=== PATIENT | male | born 1995 | race African-American/Black ===

== ENCOUNTER 2017-03-13 22:43 | Emergency (ER) | payer OTHER ==
[2017-03-14 00:29] VITALS: BP 141/76; PULSE 73; TEMP 98; BMI 35.6
[2017-03-14 02:12] LABS: BASOPHIL 0.5 % (0-2.0); EOSINOPHIL 2.4 % (0-4.5); MCH 21.2 pg (25.7-33.7); MCHC 31.7 g/dl (32.0-35.9); MEAN CELL VOLUME 66.7 fl (80-96); MEAN PLT VOLUME 8.9 fl (7.5-11.1); NEUTROPHILS 66.9 % (42.8-82.8); PLATELET COUNT 280 K/MM3 (134-434); RDW 22.6 % (11.9-15.9); WHITE BLOOD COUNT 11.6 K/mm3 (4.0-10.0)
--- NOTE | 2017-03-14 02:23 | PDOC ---
History of Present Illness - General Chief Complaint: Cold Symptoms Stated Complaint: FEVER/COLD Time Seen by Provider: 03/14/17 00:55 History Source: Patient Exam Limitations: No Limitations - History of Present Illness Initial Comments: 03/14/17 02:18 21yo Male patient with no significant past medical history presents to ED c/o body chills, sweating, throat pain, difficulty swallowing, and congestion. He states symptoms began yesterday and got worse. He states having 2 young children at home recently diagnosed with upper respiratory infections. He denies any other complaints at this time. Timing/Duration: reports: yesterday Severity: reports: moderate Episode Description: See HPI Possible Cause: Yes: illness exposure Modifying Factors: improves with: coughing. worse with: activity, albuterol inhaler, albuterol nebulizer, antibiotics, lying down, oxygen, rest, other Associated Symptoms: reports: cough, fever/chills, nasal congestion, sore throat Past History - Travel Traveled outside of the country in the last 30 days: No Close contact w/someone who was outside of country & ill: No - Past Medical History Allergies/Adverse Reactions: Allergies Allergy/AdvReac Type Severity Reaction Status Date / Time No Known Allergies Allergy Verified 03/14/17 00:29 Home Medications: Ambulatory Orders Amoxicillin/Potassium Clav [Augmentin 875-125 Tablet] 1 each PO Q12H #28 tablet 03/14/17 Dexamethasone [Decadron -] 4 mg PO BID #14 tablet 03/14/17 Other medical history: Pt denies - Suicide/Smoking/Psychosocial Hx Smoking History: Current some day smoker Have you smoked in the past 12 months: No Information on smoking cessation initiated: No Hx Alcohol Use: No Drug/Substance Use Hx: No Substance Use Type: None Respiratory Specific PMHX - Complaint Specific PMHX Angina: No Bronchitis: No Pneumonia: No Pulmonary Embolus: No TB (Tuberculosis): No Review of Systems - Review of Systems Able to Perform ROS?: Yes Is the patient limited Sinhala proficient: No Constitutional: Yes: Chills, Diaphoresis, Fever HEENTM: Yes: Throat Pain, Difficulty Swallowing Respiratory: Yes: Cough. No: Shortness of Breath, Productive cough Cardiac (ROS): No: Chest Pain, Chest Tightness ABD/GI: No: Constipated, Diarrhea, Nausea, Vomiting Musculoskeletal: No: Back Pain Integumentary: Yes: Sweating. No: Erythema, Rash Neurological: No: Headache, Tingling, Dizziness All Other Systems: Reviewed and Negative *Physical Exam - Vital Signs Last Vital Signs Temp Pulse Resp BP Pulse Ox 98.0 F 73 14 141/76 100 03/14/17 00:27 03/14/17 00:27 03/14/17 00:27 03/14/17 00:27 03/14/17 00:27 - Physical Exam General Appearance: Yes: Nourished, Appropriately Dressed. No: Apparent Distress, Mild Distress, Moderate Distress, Severe Distress HEENT: positive: EOMI, NICOLLE, Normal ENT Inspection, Normal Voice, Symmetrical, TMs Normal, Pharyngeal Erythema, Tonsillar Exudate, Tonsillar Erythema, Nasal Congestion. negative: Rhinorrhea, Sinus Tenderness, TM Bulging, TM Dull, TM Erythema, Excessive drooling, Thrush Neck: positive: Trachea midline, Normal Thyroid, Supple, Lymphadenopathy (L). negative: Tender, Rigid, Stridor, Lymphadenopathy (R), Rigidity, Tender lateral , Tender midline Respiratory/Chest: positive: Lungs Clear, Normal Breath Sounds. negative: Chest Tender, Respiratory Distress, Accessory Muscle Use, Labored Respiration, Rapid RR, Paradoxal Breathing, Rhonchi, Stridor, Wheezing Cardiovascular: positive: Regular Rhythm, Regular Rate Musculoskeletal: positive: Normal Inspection. negative: CVA Tenderness Extremity: positive: Normal Capillary Refill, Normal Inspection, Normal Range of Motion. negative: Pedal Edema, Swelling, Calf Tenderness, Erythema, Inflammation Integumentary: positive: Normal Color, Dry, Warm Neurologic: positive: lifestyle consultant II-XII NML intact, Fully Oriented, Alert, Normal Mood/ Affect, Normal Response, Motor Strength 10/08 ED Treatment Course - LABORATORY CBC & Chemistry Diagram: 03/14/17 02:02 03/14/17 02:02 - ADDITIONAL ORDERS Additional order review: 03/14/17 02:02 Influenza Types A,B Antigen (REY) - Preliminary Nasopharyngeal Swab - Preliminary 03/14/17 02:02 RBC 6.03 H MCV 66.7 L MCHC 31.7 L RDW 22.6 H MPV 8.9 D Neutrophils % 66.9 Lymphocytes % 22.0 D Monocytes % 8.2 Eosinophils % 2.4 D Basophils % 0.5 - RADIOLOGY Radiology Studies Ordered: Category Date Time Status SOFT TISSUE NECK CT WITH CONTR [CT] Stat CT Scan 03/14/17 01:44 Ordered *DC/Admit/Observation/Transfer Diagnosis at time of Disposition: Tonsillitis Pharyngitis Qualifiers: Pharyngitis/tonsillitis etiology: other specified organisms Qualified Code(s): J02.8 - Acute pharyngitis due to other specified organisms; J02.8 - Acute pharyngitis due to other specified organisms - Discharge Dispostion Disposition: HOME Condition at time of disposition: Stable Admit: No - Prescriptions Prescriptions: Amoxicillin/Potassium Clav [Augmentin 875-125 Tablet] 1 each PO Q12H #28 tablet Dexamethasone [Decadron -] 4 mg PO BID #14 tablet - Referrals Referrals: Loki Alexander MD [Primary Care Provider] - Nirav De Anda MD [Staff Physician] - - Patient Instructions Printed Discharge Instructions: DI for Pharyngitis/Tonsillopharyngitis -- Adult Additional Instructions: Follow up with your primary care provider this week for further evaluation. Take medications as prescribed. Return if symptoms worsen or any concerns for further evaluation. Follow up with Dr. De Anda (Ears, Nose, and Throat) regarding swollen tonsils this week to schedule early appointment. Print Language: MALAGASY - Post Discharge Activity Forms/Work/School Notes: Back to Work
[2017-03-14 03:25] LABS: ANION GAP 11 (8-16); CALCIUM 9.2 mg/dL (8.5-10.1); CO2 25 mmol/L (21-32); CREATININE 0.9 mg/dL (0.7-1.3); GLUCOSE,RANDOM 88 mg/dL (74-106)
[2017-03-14 03:29] LABS: ANISOCYTOSIS 3+; MICROCYTOSIS 1+; PLATELET COMMENT2 NO CLOTTING DETECTED; PLATELET COMMENT3 FEW LARGE PLTS; PLATELET ESTIMATE ADEQUATE (NORMAL); POIKILOCYTOSIS 1+; POLYCHROMASIA 1+; SPHEROCYTE 1+; TEAR DROP CELLS 1+
[2017-03-14] MEDS ORDERED: DEXAMETHASONE SOD PHOSPHATE 10 MG/1 ML VIAL IVPUSH ONE (04:43)
[2017-03-14] MEDS ORDERED: AMOX TR/POT CLAV 875MG/125MG TABLETS (FP) PO ONE (04:44)
[2017-03-14] MEDS ORDERED: AMOX TR/POT CLAV 875MG/125MG TABLETS (FP) ONE (04:59)
[2017-03-14] MEDS ORDERED: DEXAMETHASONE SOD PHOSPHATE 4 MG/1 ML VIAL ONE (04:59)
== END 2017-03-14 05:19 | disposition home or self-care (01) ==
LOC: JER 22:43
PROC: 3E033GC Introduction of Other Therapeutic Substance into Peripheral Vein, Percutaneous Approach (ICD-10-PCS; principal; 2017-03-13)
DX: J02.8 Acute pharyngitis due to other specified organisms (principal); M43.6 Torticollis
CPT/HCPCS: 36415; 70491-TC; 80048; 85025; 86308; 87070; 87430; 87804; 99282-25

== ENCOUNTER 2017-05-07 11:30 | Emergency (ER) | payer OTHER ==
[2017-05-07 11:36] VITALS: BP 127/77; PULSE 117; TEMP 99; BMI 37.5
[2017-05-07] MEDS ORDERED: LORATADINE 10 MG TABLET PO ONE (12:09)
[2017-05-07] MEDS ORDERED: IBUPROFEN 600 MG TABLET (FP) PO ONE ×2 (12:09→12:13)
--- NOTE | 2017-05-07 12:09 | PDOC ---
History of Present Illness - General Chief Complaint: Cold Symptoms Stated Complaint: CONGESTED, U. RESPIRATORY INFECTION (PCP SENT) Time Seen by Provider: 05/07/17 11:50 History Source: Patient Exam Limitations: No Limitations - History of Present Illness Initial Comments: 05/07/17 12:13 22 year old male complaining of nasal congestion, runny/ stuffy nose x 6 days. States loss of appetite, seen by pmd 4 days ago given amoxicillin and flonase states no relief of symptoms. States continues with congestion and loss of appetite. Severity: reports: mild Possible Cause: Yes: no prior episodes Associated Symptoms: reports: headache, nasal congestion Aspirin Received prior to arrival: Yes: no aspirin today ASA Contraindications(Core Measure): No: Allergy Beta Artem Contraindications(Core Measure): Yes: Not Prescribed Beta Artem Given by EMS(Core Measure): No Beta Artem Taken at Home(Core Measure): No Beta Artem Not Indicated at this Time(Core Measure): No Past History - Travel Traveled outside of the country in the last 30 days: No - Past Medical History Allergies/Adverse Reactions: Allergies Allergy/AdvReac Type Severity Reaction Status Date / Time No Known Allergies Allergy Verified 05/07/17 11:36 Home Medications: Ambulatory Orders Pseudoephedrine HCl [Sudafed 24-Hour] 240 mg PO DAILY #3 tab.er.24h 05/07/17 COPD: No Other medical history: SLEEP APNEA - Suicide/Smoking/Psychosocial Hx Smoking History: Never smoked Have you smoked in the past 12 months: No Hx Alcohol Use: Yes (SOCIAL) Drug/Substance Use Hx: No Substance Use Type: Marijuana Respiratory Specific PMHX - Complaint Specific PMHX Angina: No Bronchitis: No Pneumonia: No Pulmonary Embolus: No TB (Tuberculosis): No Review of Systems - Review of Systems Able to Perform ROS?: Yes Is the patient limited Czech proficient: No Constitutional: No: Chills, Night Sweats, Unexplained wgt Loss HEENTM: Yes: Nose Pain, Nose Congestion Respiratory: No: Cough, Wheezing Cardiac (ROS): No: See HPI, Lightheadedness, Palpitations ABD/GI: Yes: Diarrhea, Poor Appetite. No: Vomiting : No: Burning, Dysuria, Lesions Musculoskeletal: No: Back Pain, Neck Pain Integumentary: No: Bruising, Erythema Neurological: No: Dizziness Psychiatric: No: Stressors, Sleep Pattern Change Endocrine: No: Excessive Sweating *Physical Exam - Vital Signs Last Vital Signs Temp Pulse Resp BP Pulse Ox 99.0 F 117 H 20 127/77 98 05/07/17 11:31 05/07/17 11:31 05/07/17 11:31 05/07/17 11:31 05/07/17 11:31 - Physical Exam General Appearance: Yes: Nourished, Appropriately Dressed. No: Apparent Distress HEENT: positive: EOMI, NICOLLE, Pharynx Normal, Nasal Congestion, Rhinorrhea. negative: Tonsillar Erythema Neck: negative: Lymphadenopathy (R) Respiratory/Chest: positive: Lungs Clear, Normal Breath Sounds. negative: Chest Tender Cardiovascular: positive: Regular Rhythm, Regular Rate, S1, S2 Extremity: positive: Normal Capillary Refill Medical Decision Making - Medical Decision Making 05/07/17 12:16 22 year old male with nasal congestion and sinus pain with headache, taking amoxicillin and flonase claritin ibuprofen rx: sudafed x 3 days *DC/Admit/Observation/Transfer Diagnosis at time of Disposition: URI, acute - Discharge Dispostion Disposition: HOME Condition at time of disposition: Good Admit: No - Prescriptions Prescriptions: Pseudoephedrine HCl [Sudafed 24-Hour] 240 mg PO DAILY #3 tab.er.24h - Referrals Referrals: Nicky Alexander [Primary Care Provider] - - Patient Instructions Printed Discharge Instructions: How to Avoid a Cold or Flu, DI for Common Cold Additional Instructions: *Drink plenty fluids especially apple and white grape juice *rest *Continue to take medication as prescribed by doctor - Post Discharge Activity Forms/Work/School Notes: Back to Work
[2017-05-07] MEDS ORDERED: LORATADINE 10 MG TABLET ONE (12:12)
== END 2017-05-07 12:29 | disposition home or self-care (01) ==
LOC: JERFT 11:30
DX: J06.9 Acute upper respiratory infection, unspecified (principal); G47.30 Sleep apnea, unspecified
CPT/HCPCS: 99281-25

== ENCOUNTER 2017-12-23 11:16 | Emergency (ER) | payer OTHER ==
[2017-12-23 11:27] VITALS: BP 149/80; PULSE 111; TEMP 99.4; BMI 35.1
[2017-12-23] MEDS ORDERED: SODIUM CHLORIDE 0.9% 1000 ML INFUS.BAG IV STA (12:06)
--- NOTE | 2017-12-23 12:06 | PDOC ---
History of Present Illness - General Chief Complaint: Sore Throat Stated Complaint: PCP SENT/SHORTNESS OF BREATH Time Seen by Provider: 12/23/17 11:42 - History of Present Illness Initial Comments: 12/23/17 11:56 22 yo M with no significant pmh who p/w L sided tonsillar abscess. Patient with 2 weeks of L sided tonsillar swelling, and pain. States that his PMD Dr. Loki Alexander (12/20/17) attempted in office abscess drainage with no improvement in symptoms. Patient with muffled voice, fever x 2 weeks. SOB x 1 day. Has attempted Amoxicillin, Ibuprofen, and Prednisone. Has not received CT neck imaging. Decreased PO intake 2/2 odynophagia. Patient denies N/V, F,C, CP, SOB, urinary complaints, abdominal pain, diarrhea, constipation, lightheadedness, weakness, sensory changes. PMHx: as noted above ROS: as noted SHx: tobacco 1 cigarette per day. Allergies: NKDA Past History - Past Medical History Allergies/Adverse Reactions: Allergies Allergy/AdvReac Type Severity Reaction Status Date / Time No Known Allergies Allergy Verified 11/01/17 17:13 Home Medications: Ambulatory Orders Pseudoephedrine HCl [Sudafed 24-Hour] 240 mg PO DAILY #3 tab.er.24h 05/07/17 COPD: No DVT: No - Suicide/Smoking/Psychosocial Hx Smoking History: Never smoked Have you smoked in the past 12 months: No Hx Alcohol Use: Yes (SOCIAL) Drug/Substance Use Hx: Yes (MARIJUANA) Substance Use Type: Marijuana Review of Systems - Review of Systems Comments:: 12/23/17 11:56 GENERAL/CONSTITUTIONAL: No fever or chills. No weakness. HEAD, EYES, EARS, NOSE AND THROAT: + Sore throat, and tonsilar swelling. No change in vision. No ear pain or discharge. CARDIOVASCULAR: No chest pain or shortness of breath RESPIRATORY: No cough, wheezing, or hemoptysis. GASTROINTESTINAL: No nausea, vomiting, diarrhea or constipation. GENITOURINARY: No dysuria, frequency, or change in urination. MUSCULOSKELETAL: No joint or muscle swelling or pain. No neck or back pain. SKIN: No rash NEUROLOGIC: No headache, vertigo, loss of consciousness, or change in strength/ sensation. ENDOCRINE: No increased thirst. No abnormal weight change HEMATOLOGIC/LYMPHATIC: No anemia, easy bleeding, or history of blood clots. ALLERGIC/IMMUNOLOGIC: No hives or skin allergy. *Physical Exam - Vital Signs Last Vital Signs Temp Pulse Resp BP Pulse Ox 99.4 F 111 H 16 149/80 99 12/23/17 11:24 12/23/17 11:24 12/23/17 11:24 12/23/17 11:24 12/23/17 11:24 - Physical Exam Comments: 12/23/17 11:56 GENERAL: Awake, alert, and fully oriented, in no acute distress HEAD: No signs of trauma, normocephalic, atraumatic EYES: PERRLA, EOMI, sclera anicteric, conjunctiva clear ENT: + Posteior white exudates on oropharynx. + L sided tonsilar swelling and erythema. R sided uvular deviation. Auricles normal inspection, hearing grossly normal, nares patent, oropharynx clear without exudates. Moist mucosa NECK: Normal ROM, supple, no lymphadenopathy, JVD, or masses LUNGS: No distress, speaks full sentences, clear to auscultation bilaterally HEART: Regular rate and rhythm, normal S1 and S2, no murmurs, rubs or gallops, peripheral pulses normal and equal bilaterally. EXTREMITIES : Normal inspection, Normal range of motion, no edema. No clubbing or cyanosis. SKIN: Warm, Dry, normal turgor, no rashes or lesions noted ED Treatment Course - LABORATORY CBC & Chemistry Diagram: 12/23/17 12:35 12/23/17 12:36 Medical Decision Making - Medical Decision Making 12/23/17 12:30 22 yo M with no significant pmh who p/w L sided tonsillar abscess. HR 111, vitals otherwise wnl, AF. NAD. + Posteior white exudates on oropharynx. + L sided tonsilar swelling and erythema. Patient able to tolerate oral secretions, with absent stridor. No evidence of airway compromise. Possible [facility] [facility] [facility] vs. strep or mono pharyngitis. Referred to ED by PMD Dr. Loki Alexander. ENT consultation warranted. ED Course: 12/23/17 13:[address] Finley who requests that patient go to his office for evaluation. 12/23/17 13:20 CBC" Unremarkable 12/23/17 13:26 CXR: Unremarkable 12/23/17 13:35 EKG: NSR with absent interval or axis change. Absent ANKIT,STD. Incomplete RBBB RSR' V2 12/23/17 13:41 AST/ALT 61/122 Patient stable for d/c with return precautions. *DC/Admit/Observation/Transfer Diagnosis at time of Disposition: Pharyngitis Qualifiers: Pharyngitis/tonsillitis etiology: unspecified etiology Qualified Code(s): J02.9 - Acute pharyngitis, unspecified - Discharge Dispostion Disposition: HOME Condition at time of disposition: Stable Decision to Admit order: No - Referrals Referrals: Zhao Finley MD [Staff Physician] - - Patient Instructions Printed Discharge Instructions: DI for Peritonsillar Abscess -- Adult Additional Instructions: Please go directly to Dr. Kerr's office. Please discuss antibiotics with Dr. Kerr. Please return to the emergency department with any new or worsening symptoms or concerns. Please follow up with your primary care physician within 72 hours. Please call back in 2 days for follow up on [place] and HIV results. - Post Discharge Activity - Attestations Physician Attestion: 12/23/17 13:15 I attest to the information provided in this note.
[2017-12-23] MEDS ORDERED: morphine CARPU-JECT 4 MG/1 ML DISP.SYRIN IVPUSH ONE (12:16)
[2017-12-23] MEDS ORDERED: ONDANSETRON 4 MG/2 ML VIAL IVPUSH ONE (12:16)
--- NOTE | 2017-12-23 12:20 | PDOC ---
Attending Attestation - Resident Resident Name: Elmo Reynolds - ED Attending Attestation I have performed the following: I have examined & evaluated the patient, The case was reviewed & discussed with the resident, I agree w/resident's findings & plan, Exceptions are as noted - HPI HPI: 12/23/17 12:18 22 year old male no pmh p/w left sided tonsillar swelling. States has been going for 2 weeks. Has been c/o swelling pain and foul taste in mouth. The patient had seen and evaluated by Dr. Loki Alexander on December 20 with reportedly minimal improvement. Pt has been complaining of persistent fever for two weeks. Last 12 hours, has been endorsing SOB. Has tried NSAIDS and amoxicillin without improvement in symptoms. Hx of smoking. - Physicial Exam PE: 12/23/17 13:19 GENERAL: Awake, alert, and fully oriented, in no acute distress HEAD: No signs of trauma EYES: EOMI, sclera anicteric, conjunctiva clear ENT: Auricles normal inspection, hearing grossly normal, nares patent, + oropharynx with tonsillar erythema with exudates. Appears to likely have small developing L sided peritonsillar abscess. NECK: Normal ROM, supple EXTREMITIES: Normal range of motion, no edema. No clubbing or cyanosis. No cords, erythema, or tenderness NEUROLOGICAL: Cranial nerves II through XII grossly intact. Normal speech, normal gait SKIN: Warm, Dry, normal turgor, no rashes or lesions noted. - Medical Decision Making 12/23/17 12:20 Vital Signs Temp Pulse Resp BP Pulse Ox 99.4 F 111 H 16 149/80 99 12/23/17 11:24 12/23/17 11:24 12/23/17 11:24 12/23/17 11:24 12/23/17 11:24 Pt appears to have a likely developing peritonsillar abscess and persistent bacterial pharyngitis despite treatments. Appears to be likely left side. Pt to receive decadron, IV unasyn, pain medication. Dr. Reynolds had discussed case with ENT Dr. Kerr. Given WBC and lactic acid are unremarkable, and pt is protecting his airway and otherwise nontoxic appearing, Dr. Kerr is requesting that we send the patient to his office now for an evaluation. Will send patient over to his office for diagnostics and treatment. His partner will take him there. 12/23/17 13:41 CBC, BMP 12/23/17 12:35 12/23/17 12:36 CMP Sodium 136 mmol/L (136-145) 12/23/17 12:36 Potassium 3.8 mmol/L (3.5-5.1) 12/23/17 12:36 Chloride 98 mmol/L (98-107) 12/23/17 12:36 Carbon Dioxide 31 mmol/L (21-32) 12/23/17 12:36 Anion Gap 7 (8-16) L 12/23/17 12:36 BUN 14 mg/dL (7-18) 12/23/17 12:36 Creatinine 1.1 mg/dL (0.7-1.3) 12/23/17 12:36 Creat Clearance w eGFR > 60 (>60) 12/23/17 12:36 Random Glucose 84 mg/dL (74-106) 12/23/17 12:36 Lactic Acid 1.7 mmol/L (0.0-2.0) 12/23/17 12:35 Calcium 8.9 mg/dL (8.5-10.1) 12/23/17 12:36 Total Bilirubin 0.8 mg/dL (0.2-1.0) 12/23/17 12:36 AST 61 U/L (15-37) H D 12/23/17 12:36 ALT 122 U/L (12-78) H D 12/23/17 12:36 Alkaline Phosphatase 87 U/L (45-117) 12/23/17 12:36 Troponin I < 0.02 ng/ml (0.00-0.05) 12/23/17 12:36 Total Protein 7.3 g/dl (6.4-8.2) 12/23/17 12:36 Albumin 3.4 g/dl (3.4-5.0) 12/23/17 12:36 LFts are slightly elevated. Could this be mono? Monoscreen sent. Will have patient call back and follow up. We had attempted to reach out to Dr. Agnes Alexander for plan, but he was unavailable. Will give a copy of the results to the patient. <Juancarlos Bucio - Last Filed: 12/23/17 13:41> Heart Score/ECG Review #1 ECG reviewed & interpreted by me at: 13:20 12/23/17 13:27 NSR 94, no std/shantal, TWI III, J point elevation V2, RSR' V2, QTC 437 msec <Juancarlos Bucio - Last Filed: 12/23/17 13:41> ED Treatment Course - LABORATORY CBC & Chemistry Diagram: 12/23/17 12:35 12/23/17 12:36 - ADDITIONAL ORDERS Additional order review: Laboratory Results 12/23/17 12/23/17 12/23/17 12:36 12:35 12:35 PT with INR INR PTT (Actin FS) VBG pH POC VBG pCO2 POC VBG pO2 Mixed VBG HCO3 Sodium 136 Potassium 3.8 Chloride 98 Carbon Dioxide 31 Anion Gap 7 L BUN 14 Creatinine 1.1 Creat Clearance w eGFR > 60 Random Glucose 84 Lactic Acid Calcium 8.9 Total Bilirubin 0.8 AST 61 H D ALT 122 H D Alkaline Phosphatase 87 Troponin I < 0.02 Cancelled Total Protein 7.3 Albumin 3.4 Blood Type B POSITIVE Antibody Screen Negative 12/23/17 12/23/17 12/23/17 12:35 12:35 12:35 PT with INR 17.00 H INR 1.50 H PTT (Actin FS) 23.7 L VBG pH 7.49 H POC VBG pCO2 38.5 POC VBG pO2 29.9 Mixed VBG HCO3 29.6 H Sodium Potassium Chloride Carbon Dioxide Anion Gap BUN Creatinine Creat Clearance w eGFR Random Glucose Lactic Acid 1.7 Calcium Total Bilirubin AST ALT Alkaline Phosphatase Troponin I Total Protein Albumin Blood Type Antibody Screen 12/23/17 12:30 Group A Strep Rapid Antigen - Final Throat 12/23/17 12:35 RBC 5.65 H MCV 65.3 L MCHC 31.9 L RDW 21.2 H MPV 8.8 Neutrophils % 61.9 D Lymphocytes % 22.2 D Monocytes % 15.3 H Eosinophils % 0.1 D Basophils % 0.5 - RADIOLOGY Radiograph Interpretation: 12/23/17 14:03 Chest X-Ray was reviewed by Dr. Bucio and over-read by Radiology. Impression: No acute chest pathology. Documentation prepared by Danya Dunne, acting as medical facilities section director for Juancarlos Bucio MD. - Medications Given in the ED: ED Medications Discontinued Medications Generic Name Dose Route Start Last Admin Trade Name Freq PRN Reason Stop Dose Admin Dexamethasone Sodium Phosphate 10 mg 12/23/17 13:16 12/23/17 13:51 Decadron Injection - IVPUSH 12/23/17 13:17 10 mg ONCE ONE Administration Ampicillin Sodium/Sulbactam 100 mls @ 200 mls/hr 12/23/17 12:58 12/23/17 13: 51 Sodium 3 gm/ Sodium Chloride IVPB 12/23/17 13:27 200 mls/hr ONCE ONE Administration Morphine Sulfate 4 mg 12/23/17 12:16 12/23/17 12:58 Morphine Injection - IVPUSH 12/23/17 12:17 4 mg ONCE ONE Administration Ondansetron HCl 4 mg 12/23/17 12:16 12/23/17 12:58 Zofran Injection IVPUSH 12/23/17 12:17 4 mg ONCE ONE Administration Sodium Chloride 3,824 ml 12/23/17 12:06 12/23/17 12:50 Normal Saline - 30 ml/kg (3824 ml) 12/23/17 12:07 3,824 ml IV Administration ONCE STA <Danya Dunne - Last Filed: 12/23/17 16:52>
[2017-12-23] MEDS ORDERED: morphine SULFATE 4 MG/ML VIAL ONE (12:53)
[2017-12-23] MEDS ORDERED: ONDANSETRON 4 MG/2 ML VIAL ONE (12:54)
[2017-12-23 12:58] LABS: BASO % 0.5 % (0-2.0); EOS % 0.1 % (0-4.5); HEMATOCRIT 36.9 % (35.4-49); HEMOGLOBIN 11.8 GM/dL (11.7-16.9); LYMPH % 22.2 % (8-40); MCH 20.8 pg (25.7-33.7); MCHC 31.9 g/dl (32.0-35.9); MEAN CELL VOLUME 65.3 fl (80-96); MEAN PLT VOLUME 8.8 fl (7.5-11.1); MONO % 15.3 % (3.8-10.2); NEUT % 61.9 % (42.8-82.8); PLATELET COUNT 307 K/MM3 (134-434); RBC 5.65 M/mm3 (4.00-5.60); RDW 21.2 % (11.9-15.9); WHITE BLOOD COUNT 11.8 K/mm3 (4.0-10.0)
[2017-12-23] MEDS ORDERED: AMPICILLIN NA/SULBACTAM NA 3 GM in SODIUM CHLORIDE 100 ML IVPB ONE (12:58)
[2017-12-23 13:06] LABS: VENOUS PC02 38.5 mmHg (38-52); VENOUS PH 7.49 (7.32-7.42); VENOUS PO2 29.9 mmHg (28-48)
[2017-12-23 13:11] LABS: INR 1.5 (0.82-1.09)
[2017-12-23 13:14] LABS: ACTIVATED PTT 23.7 SECONDS (25.2-36.5)
[2017-12-23] MEDS ORDERED: DEXAMETHASONE SOD PHOSPHATE 10 MG/1 ML VIAL IVPUSH ONE (13:16)
[2017-12-23 13:26] LABS: ALBUMIN 3.4 g/dl (3.4-5.0); ANION GAP 7 (8-16); BILIRUBIN,TOTAL 0.8 mg/dL (0.2-1.0); BLOOD UREA NITROGEN 14 mg/dL (7-18); CALCIUM 8.9 mg/dL (8.5-10.1); CHLORIDE 98 mmol/L (98-107); CO2 31 mmol/L (21-32); CREATININE 1.1 mg/dL (0.7-1.3); GLUCOSE,RANDOM 84 mg/dL (74-106); POTASSIUM 3.8 mmol/L (3.5-5.1); SGOT/AST 61 U/L (15-37); SGPT/ALT 122 U/L (12-78); SODIUM 136 mmol/L (136-145); TOT PROT 7.3 g/dl (6.4-8.2)
[2017-12-23 13:28] LABS: ALK PHOS 87 U/L (45-117)
[2017-12-23] MEDS ORDERED: DEXAMETHASONE SOD PHOSPHATE 10 MG/1 ML VIAL ONE (13:43)
[2017-12-23 15:57] LABS: ANISOCYTOSIS 2+; PLATELET ESTIMATE ADEQUATE
--- NOTE | 2017-12-24 10:11 | EKG ---
Test Reason : Blood Pressure : / mmHG Vent. Rate : 094 BPM Atrial Rate : 094 BPM P-R Int : 148 ms QRS Dur : 096 ms QT Int : 350 ms P-R-T Axes : 037 025 017 degrees QTc Int : 437 ms NORMAL SINUS RHYTHM NORMAL ECG WHEN COMPARED WITH ECG OF 03-FEB-2016 20:55, NO SIGNIFICANT CHANGE WAS FOUND Confirmed by ELLIOT VALENZUELA MD ([id number]) on 12/24/2017 10:10:46 AM Referred By: Confirmed By:ELLIOT VALENZUELA MD
== END 2017-12-23 14:20 | disposition home or self-care (01) ==
LOC: JER 11:16
PROC: 3E03329 Introduction of Other Anti-infective into Peripheral Vein, Percutaneous Approach (ICD-10-PCS; principal; 2017-12-23)
PROC: 3E033NZ Introduction of Analgesics, Hypnotics, Sedatives into Peripheral Vein, Percutaneous Approach (ICD-10-PCS; 2017-12-23)
PROC: 3E0337Z Introduction of Electrolytic and Water Balance Substance into Peripheral Vein, Percutaneous Approach (ICD-10-PCS; 2017-12-23)
PROC: 3E033GC Introduction of Other Therapeutic Substance into Peripheral Vein, Percutaneous Approach (ICD-10-PCS; 2017-12-23)
DX: J02.9 Acute pharyngitis, unspecified (principal); J36 Peritonsillar abscess; Z72.0 Tobacco use; F12.10 Cannabis abuse, uncomplicated
CPT/HCPCS: 36415; 71045-TC-FY; 80053; 82803; 83605; 84484; 85025; 85610; 85730; 86308; 86850; 86900; 86901; 87040; 87070; 87389; 87430; 93005; 93010; 96365; 96375; 99282-25; J1100; J7030